=== PATIENT | male | born 1955 | race Caucasian/White ===

== ENCOUNTER → 2017-12-23 | Outpatient (CLI) | payer BC ==
--- NOTE | 2017-12-23 08:17 | MR ---
EXAMINATION TYPE: MR lumbar spine wo con DATE OF EXAM: 12/23/2017 COMPARISON: NONE HISTORY: Low Back Pain CONTRAST: 0 mL intravenous Omniscan. TECHNIQUE: Multiplanar, multisequence images of the lumbar spine were acquired. FINDINGS: L5-S1: There is a small central focal bulge with mild anterior thecal sac compression. No AP spinal c anal stenosis present. Neural foramen are patent. Some mild facet hypertrophy is present. L4-L5: Congenitally short pedicles are present. Facet hypertrophy and ligamentum flavum laxity is pre sent. Broad-based disc bulge has mild anterior thecal sac compression. These factors are contributing to spinal canal narrowing. L3-L4: No significant disc bulge or disc herniation. No spinal canal stenosis. No foraminal stenosi s. Mild facet hypertrophy may be present.. L2-L3: No significant disc bulge or disc herniation. No spinal canal stenosis. No foraminal stenosi s. Mild facet hypertrophy may be present.. L1-L2: No significant disc bulge or disc herniation. No spinal canal stenosis. No foraminal stenosi s. Neural foramen are patent.. T12-L1: No significant disc bulge or disc herniation. No spinal canal stenosis. No foraminal stenos is. Neural foramen are patent.. IMPRESSION: 1. Congenitally short pedicles, mild disc bulge with moderate anterior thecal sac flattening and face t hypertrophy are contributing to spinal canal narrowing at the L4-5. 2. Central focal bulging versus some endplate spurring at L5-S1 with mild anterior thecal sac renetta collin.
== END | disposition home or self-care (01) ==
LOC: RADMRIMAIN 06:43
PROVIDERS: ATTEND Physical Medicine & Rehabilitation
DX: M48.061 Spinal stenosis, lumbar region without neurogenic claudication (principal); M51.16 Intervertebral disc disorders with radiculopathy, lumbar region; M51.06 Intervertebral disc disorders with myelopathy, lumbar region; M53.86 Other specified dorsopathies, lumbar region
CPT/HCPCS: 72148

== ENCOUNTER 2018-05-15 22:00 | Inpatient (IN) | payer MEDICARE, BC ==
[~2018-05-15 22:00] MED LIST: SODIUM CHLORIDE 0.9% 1,000 ML IV ONE
[2018-05-15] MEDS ORDERED: diphenhydrAMINE 50 MG/ML 1 ML VIAL ONE (22:28)
[2018-05-15] MEDS ORDERED: MIDAZOLAM 2 MG/2 ML VIAL ONE (22:28)
[2018-05-15] MEDS ORDERED: MIDAZOLAM 2 MG/2 ML VIAL IV ONE (22:31)
[2018-05-15] MEDS ORDERED: diphenhydrAMINE 50 MG/ML 1 ML VIAL IVP ONE (22:31)
[2018-05-15] MEDS ORDERED: BIVALIRUDIN BOLUS 250 MG/50 ML IV ONE (22:39)
[2018-05-15] MEDS ORDERED: BIVALIRUDIN 250 MG in SODIUM CHLORIDE 0.9% 50 ML IV ONE (22:40)
[2018-05-15] MEDS: NITROGLYCERIN 1000MCG/10ML SYRINGE INTRACORON ONE ×2 (22:58→23:23)
[2018-05-15] MEDS ORDERED: MORPHINE SULFATE 4 MG/ML SYRINGE ONE (23:01)
[2018-05-15] MEDS: MORPHINE SULFATE 4 MG/ML SYRINGE IV ONE ×2 (23:05→23:40)
[2018-05-15] MEDS: LIDOCAINE 2% INJ 20 MG/ML IV ONE ×2 (23:06→23:11)
[2018-05-15] MEDS ORDERED: POTASSIUM CHLORIDE 20 MEQ in WATER FOR INJECTION 1 100ML.BAG IVPB STA (23:06)
[2018-05-15] MEDS ORDERED: MAGNESIUM SULFATE-D5W PMX 1 GM in DEXTROSE/WATER 1 100ML.BAG IVPB ONE (23:07)
[2018-05-15] MEDS ORDERED: POTASSIUM CHLORIDE ER 20 MEQ TAB.ER PO STA (23:07)
--- NOTE | 2018-05-15 23:09 | CONS ---
CONSULTATION Mr. Wei is a 63-year-old male patient of Dr. Candelario who started experiencing chest discomfort around between 7:30 and 8:00 pm today. He was sitting comfortably when he suddenly started experiencing severe chest discomfort with nausea and profuse sweating. A few days back he had chest discomfort, but it was brief and therefore he ignored it. He went to the emergency room at [facility] by himself and was driven by his family member and then was transferred here. 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 Therefore it has been approximately 2-1/2 to 3 hours since the onset of his discomfort when he arrived here at [facility]. At this time, he is having severe chest discomfort but seems to be in good spirits. His heart rate is in the 90s. Blood pressure has been stable according to the ER physician at [facility] who I spoke to personally. PAST MEDICAL HISTORY: Of coronary artery disease, coronary stenting, coronary artery bypass grafting 2004, and hypertension. ALLERGIES: No known drug allergies. MEDICATIONS: His medication list is not available to me at this time. He does take an aspirin and statins. REVIEW OF SYSTEMS: No fever, chills, or rigors. No cough or expectoration. No nausea, vomiting, or diarrhea. No hematuria or dysuria. No strokes or seizures or skin lesions. No musculoskeletal complaints. EXAMINATION: His skin is warm. He looks comfortable. He says he has severe chest discomfort in the midchest and reminds him of his heart attack that he had in 2004 and the pain is a similar to what he experienced a few days back, but that was brief. He never sought medical attention at that time because the pain resolved quickly. 12-lead ECG shows sinus rhythm with a normal NJ interval, ST elevation in the inferior leads with significant ST depression in leads [address] elevation also in lead V6 with ST depression and T-wave inversion in V1 and V2 consistent with a large inferior wall OK with lateral ischemia and an enlarged inferior posterior OK with lateral ischemia. On examination, breath sounds are reduced bilaterally with only scattered rhonchi. Heart sounds S1, S2 are soft. No murmurs, no gallops. No rub audible. No JVD. Abdomen is soft, nontender. Extremities are warm. Central obesity noted. IMPRESSION: 1. Acute inferior to posterior myocardial infarction with lateral extension of the ischemic territory. 2. Known coronary artery disease, coronary artery bypass grafting, history of myocardial infarction, history of stenting in 2004. 3. History of hypertension. 4. Nondiabetic. SUGGEST: He has already received IV heparin, aspirin, beta blockers and statins at [facility]. I called Dr. Mccord and spoke to him and we will be proceeding with coronary angiography urgently and likely percutaneous revascularization. This was explained to the patient who is agreeable with the plan. Copy to Dr. Victor who is his primary care physician, Bernardo Victor. MMJOHNNYL / IJN: [id number] /
[2018-05-15] MEDS ORDERED: IOPAMIDOL-370 125ML BTL INJ ONE (23:14)
[2018-05-15] MEDS ORDERED: TICAGRELOR 90 MG TAB ONE (23:20)
[2018-05-15] MEDS ORDERED: SODIUM CHLORIDE 0.9% 1,000 ML IV ONE (23:35)
[2018-05-15] MEDS ORDERED: IOPAMIDOL-370 100ML BTL INJ ONE (23:42)
[2018-05-15] MEDS ORDERED: NITROGLYCERIN SL TABS 0.4 MG TAB SUBLINGUAL PRN (23:53)
[2018-05-15] MEDS ORDERED: MAG HYDROX/AL HYDROX/SIMETH 30 ML CUP PO PRN (23:53)
[2018-05-15] MEDS ORDERED: ATROPINE SULFATE 0.1 MG/ML 10ML SYRINGE IV PRN (23:53)
[2018-05-15] MEDS ORDERED: RX INFO: IV CONTRAST WAS GIVEN 1 EACH MISC MISCELLANE PRN (23:53)
[2018-05-15] MEDS ORDERED: ZOLPIDEM 5 MG TAB PO PRN (23:53)
[2018-05-16 00:21] LABS: Glucose,Whole Blood 125 mg/dL (75-99)
[2018-05-16 00:42] VITALS: BMI 30.2
[2018-05-16] MEDS: SODIUM CHLORIDE 0.9% 1,000 ML IV SCH ×2 (01:24→15:50)
[2018-05-16 05:04] LABS: Basophils % (A) 0 %; Eosinophils % (A) 0 %; HGB 14.9 gm/dL (13.0-17.5); Lymphocytes % (A) 18 %; MCH 28.9 pg (25.0-35.0); MCHC 31.8 g/dL (31.0-37.0); MCV 90.7 fL (80.0-100.0); Mean Platelet Volume 6.7; Monocytes # (A) 0.8 k/uL (0-1.0); Monocytes % (A) 7 %; Neutrophils # (A) 7.9 k/uL (1.3-7.7); Neutrophils % (A) 72 %; Platelet Count 271 k/uL (150-450); RBC 5.18 m/uL (4.30-5.90); RDW 12.8 % (11.5-15.5)
[2018-05-16 05:16] LABS: Anion Gap 9 mmol/L; Blood Urea Nitrogen 18 mg/dL (9-20); Calcium 9.2 mg/dL (8.4-10.2); Carbon Dioxide 23 mmol/L (22-30); Chloride 106 mmol/L (98-107); Glucose 123 mg/dL (74-99); Magnesium 2.4 mg/dL (1.6-2.3); Phosphorus 4.1 mg/dL (2.5-4.5); Potassium 4.6 mmol/L (3.5-5.1); Sodium 138 mmol/L (137-145)
--- NOTE | 2018-05-16 05:45 | CC ---
CARDIAC CATHETERIZATION REPORT DATE OF SERVICE: 05/15/2018. PROCEDURE: 1. Left heart catheterization and coronary angiography with selective injection of 2 vein grafts and a RAE. 2. PTCA and stenting of a totally occluded mid RCA performed in the setting of an acute inferior RI with reperfusion accomplished in less than 35 minutes after arrival to this hospital. Drug-eluting stents were used. The PLV branch was dilated and the stented PDA branch was still patent. Moderate conscious sedation time was 75 min. Versed,MS and Benadryl was given and Pt monitored closely for O2 Sat,EKG and hemodynamics. CLINICAL INFORMATION: Mr. Jai Wei is a 63-year-old gentleman who sees Dr. Candelario in the outpatient setting. This gentleman underwent a stenting of RCA performed by Dr. Candelario in 2004 in April. At that time, he had a stent placed in the proximal RCA as well as the PDA branch. He was brought back to the same day evening because of chest pain and a repeat stenting of the proximal RCA was performed in the previously placed stent and these were both bare metal stents. About June of 2005, he underwent aortocoronary bypass surgery with a RAE to LAD and 2 separate vein grafts to the diagonal 1 and diagonal 2. Since then, he has done fairly well. He presented with acute inferior RI to [facility] and was promptly transferred by [facility] ambulance to [place]. He was seen by Dr. Reed and I proceeded to perform cardiac cath and PCI expeditiously. PROCEDURE NOTE: Under local anesthesia and strict aseptic precautions, a 6-Italian introducer was placed in the right femoral artery. A standard right Aristides guide catheter was used to cannulate the right coronary artery. I proceeded to perform intervention and then did selective coronary angiography. Using a standard right Aristides catheter, I noted that the RCA was totally occluded. A whisper wire was used to cross the lesion. I dilated the total occlusion with a 3.0 caliber 12 mm Trek balloon with a good result. The patient's chest pain was relieved but not totally gone. I then tried to advance a 23 mm long 3.25 stent but was unsuccessful. I used a shilpi wire which was a BMW wire and on this wire, I was able to deploy the 3.25 caliber 23 mm long Xience drug- eluting stent at 14 atmospheres with excellent angiographic result. Subsequently, I noted that the PLV branch had 2 tight areas of disease and these were quite distal and I was not sure if I will be able to advance the stent that distally and therefore I dilated them with a 2.5 caliber 15 mm Trek balloon. Excellent angiographic result was achieved. I noted that the previous stented segment in the ostium of the RCA was patent, but there was a 40% to 50% lesion and this was addressed with a 3.5 caliber NC Trek balloon with which I dilated up to 14 atmospheres. The previously stented PDA stent in the smaller PDA branch was widely patent. Excellent angiographic result without complication was achieved. Patient received Angiomax bolus and infusion and he also received 180 mg of Brilinta. I then took the existing guide catheter out and it diverted my attention to the coronary angiography. Using a standard left Aristides catheter I performed selective coronary angiography of the left system. I then performed using a Iveth catheter an injection of the RAE graft and also the same catheter was used to perform selective coronary angiography of the 2 diagonal branches which were both occluded and seen as stumps. LV pressures were obtained using the right Aristides type guide catheter but LV gram was not performed. The sheath was taken out and a Perclose device used to secure hemostasis and patient was sent to the room in a stable condition. CARDIAC CATHETERIZATION FINDINGS: 1. RIGHT CORONARY ARTERY: This is a very dominant vessel that was stented in the ostium by Dr. Candelario in 2004 and the PDA branch as well with a bare metal stent. This vessel is totally occluded in the mid portion after an acute marginal branch and is the culprit lesion. 2. LEFT MAIN CORONARY ARTERY: This is a short patent disease-free vessel that is calcified, bifurcates into LAD and circumflex. 3. LEFT POSTERIOR CIRCUMFLEX CORONARY ARTERY: Nondominant vessel has an ostial plaque of 40-50%. Gives off a small obtuse marginal, a groove branch and appears to be calcified with minor diffuse irregularities. 4. LEFT ANTERIOR DESCENDING CORONARY ARTERY: This vessel has a proximal stenosis of 80- 90%. Gives off 2 diagonal branches and then the LAD is totally occluded after the 2 diagonal branches. Both diagonal branches are stented suggesting that they were grafted but there is no competitive flow. The LAD has a competitive flow suggesting that the RAE was patent. There is a septal branch that is also widely patent with minor diffuse disease. LAD is therefore grafted RAE, competitive flow from RAE is evident. Both diagonal branches are highly diseased, but they do not have competitive flow and proximal to the diagonal branches there is 80% stenosis in the LAD. 5. SAPHENOUS VEIN GRAFT TO THE DIAGONAL 1: This graft is totally occluded, seen as a stump. 6. SAPHENOUS VEIN GRAFT TO THE DIAGONAL 2: This is also totally occluded seen as a stump. 7. LEFT INTERNAL MAMMARY ARTERY GRAFT TO LAD: This graft is widely patent and runs along the anterior wall, tortuous and attachment is free of significant disease. LAD is well opacified and both fills proximally and distally all the way to the apex, has minor irregularities no significant disease. Lots of septal branches are seen. The RAE graft is therefore widely patent with good flow. Both vein grafts are occluded. IMPRESSION: 1. This patient has a total occlusion of both the vein graft to the diagonal 1 and diagonal 2. The RAE to LAD is patent. 2. The RCA is totally occluded and is a culprit vessel with 100% mid RCA occlusion. RCA was stented with a drug-eluting stent and the PLV branch was dilated with a 2.5 balloon. Excellent angiographic result has been achieved. There was total relief of chest pain and remarkable improvement in EKG noted. 3. Patient's filling pressures were normal. There was no gradient across aortic valve. RECOMMENDATIONS: I performed PCI of the dominant RCA as well as PTCA of the PLV branch. Results were discussed with the patient and family. He will be sent to the ICU and will be placed on dual antiplatelet therapy and I expect that he will be discharged the next 48 -72 hours. MMJOHNNYL / VANCEN: [id number] / HALEY
--- NOTE | 2018-05-16 05:48 | LTR ---
May 16, [address] Victor: Thank you for letting me participate in the care of Mr. Wei. Mr. Jai Wei underwent stenting of a totally occluded RCA with excellent angiographic result. I expect that we have saved a lot of myocardium for this gentleman. he should be on dual antiplatelet therapy without interruption for at least one year. Please find enclosed my detailed cardiac cath report and PCI information enclosed with this letter. Thank you for your referral and please call for questions. Sincerely, MMJOHNNYL / IJN: [id number] /
[2018-05-16] MEDS: ASPIRIN 81 MG PO SCH (08:30)
[2018-05-16] MEDS: TICAGRELOR 90 MG TAB PO SCH ×2 (08:30→20:22)
[2018-05-16] MEDS ORDERED: METOPROLOL TARTRATE 25 MG TAB PO SCH (09:00)
[2018-05-16] MEDS ORDERED: FUROSEMIDE 10 MG/ML 2 ML VIAL IV ONE (09:30)
--- NOTE | 2018-05-16 09:34 | PN ---
PROGRESS NOTE Mr. Wei is a 63-year-old male with known history of coronary artery disease who presented with an acute inferior myocardial infarction, underwent cardiac catheterization by Dr. Jolene Mccord last night and was found to have an occluded right coronary artery, underwent stenting of that vessel, underwent stenting of the PDA. He has mild dyspnea this morning. He is denying any symptoms of chest pain. He denies any dizziness, palpitation. He denies any nausea. He continues to be at this time on aspirin once a day, Brilinta 90 mg twice a day, lisinopril 5 mg daily, metoprolol tartrate 12.5 mg twice a day. PHYSICAL EXAMINATION: Blood pressure 136/80 with the heart rate in 60s. LUNGS: No rales. HEART: Regular rate and rhythm. S1, S2. No S3. No rub. ABDOMEN: Soft, nontender. RIGHT GROIN: No hematoma. IMPRESSION: 1. Status post acute inferior myocardial infarction with stenting of the RCA. 2. Status post coronary artery bypass grafting. 3. Hyperlipidemia. 4. Hypertension. RECOMMENDATION: I will continue present therapy. We will obtain echocardiogram with Doppler. I will give him one dose of diuretics today. We will follow his troponin. Increase his level of activity and depending on his progress, further recommendation will be made. MMODL / IJN: [id number] /
--- NOTE | 2018-05-16 10:48 | ECHOF ---
Referral Reason:Acute INF IA PCI RCA MEASUREMENTS -------- HEIGHT: 177.8 cm WEIGHT: 90.7 kg BP: 132/81 RVIDd: 3.3 cm (< 3.3) IVSd: 1.4 cm (0.6 - 1.1) LVIDd: 5.9 cm (3.9 - 5.3) LVPWd: 1.4 cm (0.6 - 1.1) IVSs: 2.0 cm LVIDs: 4.5 cm LVPWs: 1.7 cm LA Diam: 3.8 cm (2.7 - 3.8) LAESV Index (A-L): 25.65 ml/m Ao Diam: 3.9 cm (2.0 - 3.7) AV Cusp: 2.7 cm (1.5 - 2.6) MV EXCURSION: 20.477 mm (> 18.000) MV EF SLOPE: 97 mm/s (70 - 150) EPSS: 1.3 cm MV E Charles: 0.75 m/s MV DecT: 171 ms MV A Charles: 1.02 m/s MV E/A Ratio: 0.73 RAP: 5.00 mmHg RVSP: 17.98 mmHg FINDINGS -------- Sinus rhythm. This was a technically adequate study. The left ventricular size is normal. There is moderate concentric left ventricular hypertrophy. O verall left ventricular systolic function is moderately impaired with, an EF between 35 - 40 %. Bas al posterior LV wall motion is hypokinetic. Basal inferior LV wall motion is hypokinetic. Basal inferoseptal LV wall motion is hypokinetic. The right ventricle is mildly enlarged. Normal LA size by volume 22+/-6 ml/m2. The right atrium is normal in size. 3 ml of Lumason was utilized for enhancement of images. There is mild aortic valve sclerosis. Mild mitral annular calcification present. Mild tricuspid regurgitation present. Right ventricular systolic pressure is normal at < 35 mmHg. Trace/mild (physiologic) pulmonic regurgitation. The aortic root is dilated measuring 3.9cm. Normal inferior vena cava with normal inspiratory collapse consistent with estimated right atrial pre ssure of 5 mmHg. There is no pericardial effusion. CONCLUSIONS -------- 1. Sinus rhythm. 2. This was a technically adequate study. 3. The left ventricular size is normal. 4. There is moderate concentric left ventricular hypertrophy. 5. Overall left ventricular systolic function is moderately impaired with, an EF between 35 - 40 %. 6. Basal posterior LV wall motion is hypokinetic. 7. Basal inferior LV wall motion is hypokinetic. 8. Basal inferoseptal LV wall motion is hypokinetic. 9. The right ventricle is mildly enlarged. 10. Normal LA size by volume 22+/-6 ml/m2. 11. The right atrium is normal in size. 12. 3 ml of Lumason was utilized for enhancement of images. 13. There is mild aortic valve sclerosis. 14. Mild mitral annular calcification present. 15. Mild tricuspid regurgitation present. 16. Right ventricular systolic pressure is normal at < 35 mmHg. 17. Trace/mild (physiologic) pulmonic regurgitation. 18. The aortic root is dilated measuring 3.9cm. 19. Normal inferior vena cava with normal inspiratory collapse consistent with estimated right atrial pressure of 5 mmHg. 20. There is no pericardial effusion. JEWELRY DIPPER: Soha Thomas RDCS
[2018-05-16] MEDS: LISINOPRIL 5 MG TAB PO SCH (20:22)
[2018-05-16] MEDS: ATORVASTATIN 80 MG TAB PO SCH (20:22)
[2018-05-16] MEDS: METOPROLOL TARTRATE 12.5 MG TAB PO SCH (20:59)
[2018-05-17 05:14] LABS: Anion Gap 10 mmol/L; Calcium 9.4 mg/dL (8.4-10.2); Carbon Dioxide 23 mmol/L (22-30); Chloride 103 mmol/L (98-107); Glucose 140 mg/dL (74-99); Sodium 136 mmol/L (137-145)
[2018-05-17 05:32] LABS: Blood Urea Nitrogen 19 mg/dL (9-20); Potassium 4.5 mmol/L (3.5-5.1)
[2018-05-17] MEDS: METOPROLOL TARTRATE 12.5 MG TAB PO SCH ×2 (07:57→21:08)
[2018-05-17] MEDS: ASPIRIN 81 MG PO SCH (07:57)
--- NOTE | 2018-05-17 08:02 | P.HPIM ---
History of Present Illness This is a pleasant 63 years old male with past medical history of coronary artery disease, hyperlipidemia, hypertension, status post CABG in 2004. Never smoked. Patient presents with severe chest pain of one-day duration. Central. Associated with nausea but no vomiting. And sweating. Mild dyspnea. On admission his troponins were elevated at 44.9 , 30.2 and 21.3 his white blood cells is widely elevated at 11 K. Hemoglobin is 14.9. Echocardiogram showed ejection fraction 55-40%. Posterior left ventricular wall hypokinetic. mild valve Disease. Moderate left ventricular hypertrophy. 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 HEENT: No recent visual problems or hearing problems. Denied any sore throat. CARDIOVASCULAR: No orthopnea, PND, no palpitations, no syncope. PULMONARY: No shortness of breath, no cough, no hemoptysis. GASTROINTESTINAL: No diarrhea, no nausea, no vomiting, no abdominal pain. Normoactive bowel sounds. NEUROLOGICAL: No headaches, no weakness, no numbness. HEMATOLOGICAL: Denies any bleeding or petechiae. GENITOURINARY: Denies any burning micturition, frequency, or urgency. MUSCULOSKELETAL/RHEUMATOLOGICAL: Denies any joint pain, swelling, or any muscle pain. ENDOCRINE: Denies any polyuria or polydipsia. Past Medical History Past Medical History: Coronary Artery Disease (CAD), Hyperlipidemia, Hypertension History of Any Multi-Drug Resistant Organisms: None Reported Past Surgical History: Coronary Bypass/CABG, Heart Catheterization With Stent Additional Past Surgical History / Comment(s): CABG 2004 Past Anesthesia/Blood Transfusion Reactions: No Reported Reaction Date of Last Stent Placement:: 05/16/18 Past Psychological History: No Psychological Hx Reported Smoking Status: Never smoker Past Drug Use History: None Reported - Past Family History Father Family Medical History: Coronary Artery Disease (CAD) Additional Family Medical History / Comment(s): CABG Medications and Allergies Home Medications Medication Instructions Recorded Confirmed Type Aspirin [Adult Low Dose Aspirin EC] 81 mg PO DAILY 05/16/18 05/16/18 History Fenofibrate Nanocrystallized 145 mg PO DAILY 05/16/18 05/16/18 History [Fenofibrate] Lisinopril [Zestril] 5 mg PO DAILY 05/16/18 05/16/18 History Metoprolol Tartrate [Lopressor] 12.5 mg PO BID 05/16/18 05/16/18 History Niacin [Niaspan] 500 mg PO DAILY 05/16/18 05/16/18 History Simvastatin 40 mg PO DAILY 05/16/18 05/16/18 History Allergies Allergy/AdvReac Type Severity Reaction Status Date / Time No Known Allergies Allergy Verified 05/15/18 22:24 Physical Exam Vitals: Vital Signs Temp Pulse Pulse Resp BP BP Pulse Ox 05/16/18 21:30 77 18 106/73 93 L 05/16/18 21:00 85 15 118/82 94 L 05/16/18 20:30 87 12 118/82 96 05/16/18 20:00 98.8 F 80 14 143/85 94 L 05/16/18 19:30 74 21 143/85 92 L 05/16/18 19:00 98.5 F 80 80 18 131/80 131/80 95 05/16/18 18:00 66 19 107/77 95 05/16/18 17:00 57 L 20 107/77 96 05/16/18 16:00 98.4 F 77 66 12 119/74 94 L 05/16/18 15:30 63 11 L 119/74 94 L 05/16/18 15:00 61 12 122/83 93 L 05/16/18 14:00 71 17 141/81 93 L 05/16/18 13:00 70 7 L 137/86 93 L 05/16/18 12:00 98.6 F 61 64 13 118/79 95 05/16/18 11:17 98.4 F 60 16 118/79 05/16/18 11:00 62 7 L 149/103 95 05/16/18 10:00 60 16 128/83 92 L 05/16/18 09:00 64 9 L 141/85 96 05/16/18 08:00 98.4 F 66 12 122/83 95 05/16/18 07:30 96 05/16/18 07:00 69 14 136/82 96 05/16/18 06:30 71 15 94 L 05/16/18 06:00 78 21 150/92 96 05/16/18 05:30 65 14 148/91 97 05/16/18 05:00 80 18 132/81 95 05/16/18 04:30 69 21 138/78 95 05/16/18 04:00 98.4 F 75 16 130/77 95 05/16/18 03:30 68 16 134/78 95 05/16/18 03:00 72 18 137/78 90 L 05/16/18 02:30 68 16 135/79 92 L 05/16/18 02:00 77 18 123/78 92 L 05/16/18 01:45 80 20 131/85 92 L 05/16/18 01:30 75 18 153/83 91 L 05/16/18 01:15 87 20 153/88 92 L 05/16/18 01:00 67 16 133/84 95 05/16/18 00:45 74 24 139/84 94 L 05/16/18 00:30 98.5 F 73 20 131/81 93 L Intake and Output 05/16/18 05/16/18 05/17/18 14:59 22:59 06:59 Intake Total 475 550 Output Total 3100 1360 Balance -2625 -810 Intake: IV 75 Sodium Chloride 0.9% 1, 75 000 ml @ 75 mls/hr IV . [id number] FOR[facility]LY [facility], 1928–1983 Rx#:[id number] Oral 400 550 Output: Urine 3100 1360 Other: Voiding Method Urinal Bedside Commode Urinal # Voids 1 1 # Bowel Movements 0 1 Weight 95.6 kg 95.6 kg GENERAL: The patient is alert and oriented x3, not in any acute distress. Well developed, well nourished. HEENT: Pupils are round and equally reacting to light. EOMI. No scleral icterus. No conjunctival pallor. Normocephalic, atraumatic. No pharyngeal erythema. No thyromegaly. CARDIOVASCULAR: S1 and S2 present. No murmurs, rubs, or gallops. PULMONARY: Chest is clear to auscultation, no wheezing or crackles. ABDOMEN: Soft, nontender, nondistended, normoactive bowel sounds. No palpable organomegaly. MUSCULOSKELETAL: No joint swelling or deformity. EXTREMITIES: No cyanosis, clubbing, or pedal edema. NEUROLOGICAL: Gross neurological examination did not reveal any focal deficits. SKIN: No rashes. Results CBC & Chem 7: 05/16/18 04:24 05/17/18 04:24 Labs: Abnormal Lab Results - Last 24 Hours (Table) 05/16/18 05/16/18 05/16/18 Range/Units 00:19 04:24 04:24 WBC 11.0 H (3.8-10.6) k/uL Neutrophils # 7.9 H (1.3-7.7) k/uL Glucose 123 H (74-99) mg/dL POC Glucose (mg/dL) 125 H (75-99) mg/dL Magnesium 2.4 H (1.6-2.3) mg/dL Troponin I (0.000-0.034) ng/mL 05/16/18 05/16/18 05/16/18 Range/Units 04:24 10:43 16:11 WBC (3.8-10.6) k/uL Neutrophils # (1.3-7.7) k/uL Glucose (74-99) mg/dL POC Glucose (mg/dL) (75-99) mg/dL Magnesium (1.6-2.3) mg/dL Troponin I 44.900 H* 30.200 H* 21.300 H* (0.000-0.034) ng/mL Thrombosis Risk Factor Assmnt - Choose All That Apply Any of the Below Risk Factors Present?: Yes Each Factor Represents 1 point: Medical pt on bed rest, Obesity (BMI >25) Other Risk Factors: Yes Each Risk Factor Represents 2 Points: Age 61-74 years Other congenital or acquired thrombophilia - If yes, enter type in comment: No Thrombosis Risk Factor Assessment Total Risk Factor Score: 4 Thrombosis Risk Factor Assessment Level: Moderate Risk Assessment and Plan Assessment: inferio-lateral myocardial infarction coronary artery disease hypertension hyperlipidemia Plan: This is a pleasant 63 years old male who presents with severe chest pain found to have inferior lateral myocardial infarction. His underwent cardiac cath. Continue with same treatment. Continue with symptomatic treatment. Monitor labs and electrolytes. Resume home medication. Continue with DVT and GI prophylaxis. Replace electrolytes as per protocols. Patient was started on blood pressure medication lisinopril 5 mg daily and metoprolol 12.5 mg. His currently on Lipitor. And he is on aspirin and Brilinta , . Further recommendation based on the clinical course of the patient. Prognosis is guarded
[2018-05-17] MEDS: TICAGRELOR 90 MG TAB PO SCH ×2 (09:15→21:08)
--- NOTE | 2018-05-17 10:02 | PN ---
PROGRESS NOTE Mr. Wei is a 63-year-old male who presented with an acute inferior myocardial infarction underwent stenting of the right coronary artery. He is feeling well this morning. He denies any symptoms of chest pain. His breathing has been stable. He denies any dizziness or palpitations. He continues to be on aspirin once a day, Lipitor 80 mg daily, Zestril 5 mg daily, Brilinta 90 mg twice a day, metoprolol tartrate 12.5 mg twice a day. PHYSICAL EXAMINATION: Blood pressure 114/70 with a heart rate in the 90s. LUNGS: Clear. HEART: Regular rate and rhythm S1, S2. No S3. No rub. ABDOMEN: Soft and nontender. EXTREMITIES: No edema. LAB DATA: Lab data revealed a peak troponin of 44.9, BUN creatinine 19 and 0.8, potassium 4.5. His echocardiogram revealed ejection fraction of 40% with inferior wall hypokinesis. IMPRESSION: 1. Status post inferior myocardial infarction and stenting of the right coronary artery. 2. Status post coronary artery bypass grafting. 3. Ischemic cardiomyopathy. 4. Hyperlipidemia. RECOMMENDATION: From the cardiac standpoint, we will continue present therapy. He has occasional dyspnea that could be related to the Brilinta. I will add to his regimen Aldactone 25 mg daily. He should be able to be transferred to the telemetry floor and depending on his progress, further recommendations will be made. JAKE / RADHA: [id number] /
[2018-05-17] MEDS: SPIRONOLACTONE 25 MG TAB PO SCH (10:33)
[2018-05-17] MEDS: ATORVASTATIN 80 MG TAB PO SCH (21:08)
[2018-05-17] MEDS: LISINOPRIL 5 MG TAB PO SCH (21:08)
--- NOTE | 2018-05-17 21:53 | P.PN ---
Subjective This is a pleasant 63 years old male with past medical history of coronary artery disease, hyperlipidemia, hypertension, status post CABG in 2004. Never smoked. Patient presents with severe chest pain of one-day duration. Central. Associated with nausea but no vomiting. And sweating. Mild dyspnea. On admission his troponins were elevated at 44.9 , 30.2 and 21.3 his white blood cells is widely elevated at 11 K. Hemoglobin is 14.9. Echocardiogram showed ejection fraction 55-40%. Posterior left ventricular wall hypokinetic. mild valve Disease. Moderate left ventricular hypertrophy. 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 and patient is going for cardiac cath today 05/17/2018 pt is doing well with no chest pain or dyspnea however he still needs close monitoring as well as lytes and vitals , pt to be transferred to general medical floor today with telemetry monitoring Objective - Vital Signs Vital signs: Vital Signs Temp 97.2 F L 05/17/18 15:41 Pulse 61 05/17/18 15:41 Resp 20 05/17/18 15:41 BP 110/76 05/17/18 15:41 Pulse Ox 96 05/17/18 15:41 Intake & Output 05/17/18 05/17/18 05/18/18 06:59 18:59 06:59 Intake Total 100 980 Output Total 1110 Balance -1010 980 Weight 89.9 kg Intake: Intake, IV Titration 0 Amount Sodium Chloride 0.9% 1, 0 000 ml @ 0 mls/hr IV .[facility] Rx#:[id number] Oral 100 980 Output: Urine 1110 Other: Voiding Method Urinal Toilet Bedside Commode Urinal # Voids 1 0 # Bowel Movements 1 1 - Exam GENERAL: The patient is alert and oriented x3, not in any acute distress. Well developed, well nourished. HEENT: Pupils are round and equally reacting to light. EOMI. No scleral icterus. No conjunctival pallor. Normocephalic, atraumatic. No pharyngeal erythema. No thyromegaly. CARDIOVASCULAR: S1 and S2 present. No murmurs, rubs, or gallops. PULMONARY: Chest is clear to auscultation, no wheezing or crackles. ABDOMEN: Soft, nontender, nondistended, normoactive bowel sounds. No palpable organomegaly. Small abdominal wall lump close to the umbilicus with a smooth borders and mobile, nontender MUSCULOSKELETAL: No joint swelling or deformity. EXTREMITIES: No cyanosis, clubbing, or pedal edema. NEUROLOGICAL: Gross neurological examination did not reveal any focal deficits. - Labs CBC & Chem 7: 05/16/18 04:24 05/17/18 04:24 Labs: Abnormal Lab Results - Last 24 Hours (Table) 05/17/18 Range/Units 04:24 Sodium 136 L (137-145) mmol/L Glucose 140 H (74-99) mg/dL Assessment and Plan Assessment: inferio-lateral myocardial infarction coronary artery disease hypertension hyperlipidemia Plan: This is a pleasant 63 years old male who presents with severe chest pain found to have inferior lateral myocardial infarction. His underwent cardiac cath. Continue with same treatment. Continue with symptomatic treatment. Monitor labs and electrolytes. Resume home medication. Continue with DVT and GI prophylaxis. Replace electrolytes as per protocols. Patient was started on blood pressure medication lisinopril 5 mg daily and metoprolol 12.5 mg. His currently on Lipitor. And he is on aspirin and Brilinta , . Further recommendation based on the clinical course of the patient. Prognosis is guarded
[2018-05-18 06:43] LABS: Anion Gap 7 mmol/L; Blood Urea Nitrogen 27 mg/dL (9-20); Calcium 9.2 mg/dL (8.4-10.2); Carbon Dioxide 26 mmol/L (22-30); Chloride 104 mmol/L (98-107); Glucose 140 mg/dL (74-99); Potassium 4.6 mmol/L (3.5-5.1); Sodium 137 mmol/L (137-145)
[2018-05-18] MEDS: TICAGRELOR 90 MG TAB PO SCH (08:14)
[2018-05-18] MEDS: ASPIRIN 81 MG PO SCH (08:14)
[2018-05-18] MEDS: SPIRONOLACTONE 25 MG TAB PO SCH (08:14)
[2018-05-18] MEDS: METOPROLOL TARTRATE 12.5 MG TAB PO SCH (08:14)
[2018-05-18 08:56] VITALS: RESP 20
--- NOTE | 2018-05-18 10:03 | PN ---
PROGRESS NOTE Mr. Wei is a 63-year-old male who presented with an acute inferior myocardial infarction underwent stenting of the right coronary artery. He is doing well this morning, ambulating without difficulty. Denying and dizziness. No palpitation. He has minimal dyspnea. Otherwise, he has no other symptoms. He continues to be on aspirin once a day, Brilinta 90 mg twice a day, spironolactone 25 mg daily, lisinopril 5 mg daily, metoprolol tartrate 12.5 mg twice a day, Lipitor 80 mg daily. PHYSICAL EXAMINATION: Blood pressure 119/60 with a heart rate in the 60s. LUNGS: Clear. HEART: Regular rhythm S1, S2. No S3. No rub. ABDOMEN: Soft and nontender. EXTREMITIES: No edema. LAB DATA: Lab data revealed a potassium 4.6. BUN and creatinine 27 and 0.8. IMPRESSION: 1. Status post inferior myocardial infarction and stenting of the right coronary artery. 2. Hypertension. 3. Hyperlipidemia. RECOMMENDATION: Patient will be discharged home today and followed in 1 week. MMODL / IJN: [id number] /
[2018-05-18 11:21] LABS: Basophils % (A) 0 %; Eosinophils # (A) 0.1 k/uL (0-0.7); Eosinophils % (A) 2 %; HCT 48.6 % (39.0-53.0); HGB 15.5 gm/dL (13.0-17.5); Lymphocytes # (A) 1.9 k/uL (1.0-4.8); Lymphocytes % (A) 25 %; MCH 29.3 pg (25.0-35.0); MCHC 31.8 g/dL (31.0-37.0); MCV 92.1 fL (80.0-100.0); Mean Platelet Volume 7.6; Monocytes # (A) 0.4 k/uL (0-1.0); Monocytes % (A) 6 %; Neutrophils # (A) 4.7 k/uL (1.3-7.7); Neutrophils % (A) 64 %; Platelet Count 301 k/uL (150-450); RBC 5.28 m/uL (4.30-5.90); RDW 12.7 % (11.5-15.5); WBC 7.3 k/uL (3.8-10.6)
[2018-05-18 11:28] VITALS: BP 99/62; PULSE 63; TEMP 98.2
== END 2018-05-18 15:17 | disposition home or self-care (01) | DRG 247 ==
LOC: 6ICU 23:57 → 6SEL 05-17 11:34
PROVIDERS: ADMIT Hospitalist; ATTEND Hospitalist
PROC: 027034Z Dilation of Coronary Artery, One Artery with Drug-eluting Intraluminal Device, Percutaneous Approach (ICD-10-PCS; principal; 2018-05-16)
PROC: 02713ZZ Dilation of Coronary Artery, Two Arteries, Percutaneous Approach (ICD-10-PCS; 2018-05-16)
PROC: 4A023N7 Measurement of Cardiac Sampling and Pressure, Left Heart, Percutaneous Approach (ICD-10-PCS; 2018-05-16)
PROC: B2111ZZ Fluoroscopy of Multiple Coronary Arteries using Low Osmolar Contrast (ICD-10-PCS; 2018-05-16)
PROC: B2131ZZ Fluoroscopy of Multiple Coronary Artery Bypass Grafts using Low Osmolar Contrast (ICD-10-PCS; 2018-05-16)
DX: I21.19 ST elevation (STEMI) myocardial infarction involving other coronary artery of inferior wall (principal); I25.810 Atherosclerosis of coronary artery bypass graft(s) without angina pectoris; E78.5 Hyperlipidemia, unspecified; I11.9 Hypertensive heart disease without heart failure; I25.10 Atherosclerotic heart disease of native coronary artery without angina pectoris; I25.2 Old myocardial infarction; I25.5 Ischemic cardiomyopathy; Z79.82 Long term (current) use of aspirin; Z79.899 Other long term (current) drug therapy; Z95.5 Presence of coronary angioplasty implant and graft; Z95.1 Presence of aortocoronary bypass graft; Z82.49 Family history of ischemic heart disease and other diseases of the circulatory system
CPT/HCPCS: 80048; 83735; 84100; 84484; 85025; 93306; 93455